=== PATIENT | male | born 1965 | race Caucasian/White ===

== ENCOUNTER 2018-01-15 22:08 | Inpatient (IN) | payer BC ==
[~2018-01-15] VITALS: Ht 185.4 cm; Wt 82.3 kg
[~2018-01-15 22:08] MED LIST: HYDR-3968 PO; LISI40TA4 PO; PER10325T PO; TADA20TA
[2018-01-15 23:23] LABS: BASOPHILS % (AUTO) 0.4 % (0-1); EOSINOPHILS # (AUTO) 0.1 X10'3 (0-0.9); EOSINOPHILS % (AUTO) 1.3 % (0-6); HEMATOCRIT 28.8 % (42.0-52.0); HEMOGLOBIN 9.1 g/dl (14.0-17.9); LYMPHOCYTES # (AUTO) 0.5 X10'3 (1.1-4.8); LYMPHOCYTES % (AUTO) 8.7 % (21-51); MEAN CORPUSCULAR HEMOGLOBIN 22.1 PG (27.0-31.0); MEAN CORPUSCULAR HGB CONC 31.7 % (33.0-36.5); MEAN CORPUSCULAR VOLUME 69.8 FL (78-98); MEAN PLATELET VOLUME 7.8 FL (7.4-10.4); MONOCYTES # (AUTO) 0.4 X10'3 (0-0.9); MONOCYTES % (AUTO) 8.2 % (2-12); NEUTROPHILS # (AUTO) 4.4 X10'3 (1.8-7.7); NEUTROPHILS % (AUTO) 81.4 % (42-75); PLATELET COUNT 269 X10'3 (140-440); RED BLOOD COUNT 4.13 X10'6 (4.70-6.10); RED CELL DISTRIBUTION WIDTH 18.6 % (11.5-14.5); WHITE BLOOD COUNT 5.4 X10'3 (4.5-11.0)
[2018-01-15] MEDS ORDERED: ondansetron/PF 4mg/2ml inj IV ONE (23:30)
[2018-01-15] MEDS ORDERED: normal saline 1000ml 1,000 ML IV ONE (23:30)
[2018-01-15] MEDS ORDERED: normal saline 1000ML IV soln IVB ONE (23:35)
[2018-01-15] MEDS ORDERED: morphine 4 MG/ML inj SYRINge IV ONE (23:35)
[2018-01-15 23:38] LABS: ALANINE AMINOTRANSFERASE 16 U/L (12-78); ALBUMIN/GLOBULIN RATIO 0.9 (1.1-1.5); ALKALINE PHOSPHATASE 71 IU/L (46-116); ANION GAP 14 (8-16); ASPARTATE AMINO TRANSFERASE 12 U/L (10-37); BILIRUBIN,TOTAL 0.7 MG/DL (0.1-1.0); BLOOD UREA NITROGEN 12 MG/DL (7-18); BUN/CREATININE RATIO 11.3 (5.4-32.0); CALCIUM 9.4 MG/DL (8.5-10.1); CHLORIDE 103 MMOL/L (99-107); CREATININE 1.06 MG/DL (0.60-1.10); GLUCOSE 121 MG/DL (70-104); POTASSIUM 3.6 MMOL/L (3.5-5.1); SODIUM 141 MMOL/L (135-145); TOTAL PROTEIN 6.4 G/DL (6.4-8.2); eGFR 74 ML/MIN
[2018-01-15] MEDS ORDERED: iohexol 300mg/ml 100ml inj. ONE (23:40)
[2018-01-15 23:48] LABS: PARTIAL THROMBOPLASTIN TIME 27 SECONDS (22-32)
[2018-01-15 23:54] LABS: LIPASE 90 U/L (73-393)
[2018-01-15 23:56] LABS: ANISOCYTOSIS 2+; ELLIPTOCYTES FEW; MICROCYTOSIS 2+; PLATELET ESTIMATE NORMAL; POLYCHROMASIA FEW
[2018-01-16] MEDS ORDERED: morphine 4 MG/ML inj SYRINge IV ONE ×2 (00:35→01:45)
[2018-01-16 01:12] LABS: CLARITY,URINE CLEAR (Clear); COLOR,URINE YELLOW (Yellow); GLUCOSE, URINE NEGATIVE (Neg); KETONES,URINE 15 mg/dl (Neg); LEUKOCYTE ESTERASE ,URINE NEGATIVE (Neg); NITRITES, URINE NEGATIVE (Neg); OCCULT BLOOD,URINE NEGATIVE (Neg); PROTEIN,URINE NEGATIVE (Neg)
[2018-01-16 01:19] LABS: UA COLLECTION TYPE URINAL
[2018-01-16] MEDS ORDERED: piperacillin/tazo 3.375gm/50ml 50 ML IV STA (01:41)
[2018-01-16] MEDS ORDERED: ondansetron/PF 4mg/2ml inj IV ONE (01:45)
[2018-01-16] MEDS ORDERED: acetaminophen 325mg tablet PO PRN (03:00)
[2018-01-16] MEDS ORDERED: hydrALAZINE 20mg/ml inj. IV PRN (03:00)
[2018-01-16] MEDS ORDERED: mag hydrox/Alum hydrox/simeth 30ml oral suspension PO PRN (03:00)
[2018-01-16] MEDS ORDERED: HYDROmorphone 1 mg/ml syringe IV ONE (03:00)
[2018-01-16] MEDS ORDERED: magnesium hydroxide 30ml (MOM) UD suspension PO PRN (03:00)
[2018-01-16] MEDS ORDERED: HYDROmorphone inj. 0.5 MG/0.5 ML DISP.SYRIN IV PRN ×2 (03:00)
[2018-01-16] MEDS ORDERED: fentaNYL/PF 50MCG/1 ML 2ML syringe IV ONE (03:05)
[2018-01-16] MEDS ORDERED: morphine 4 MG/ML inj SYRINge IV PRN (03:10)
[2018-01-16] MEDS ORDERED: MORPHINE 2MG in 2ml NS syringe IV PRN (03:10)
[2018-01-16 03:35] VITALS: BP 144/97
[2018-01-16] MEDS: normal saline 1000ml 1,000 ML IV SCH ×4 (03:38→23:00)
[2018-01-16] MEDS ORDERED: naloxone 0.4 mg/ml inj IV PRN (07:55)
[2018-01-16] MEDS ORDERED: CADD PCA waste documentation MC PRN (07:55)
[2018-01-16 08:00] VITALS: BP 152/93
[2018-01-16] MEDS: piperacillin/tazo 3.375gm/50ml 50 ML IV SCH ×3 (08:00→20:52)
[2018-01-16] MEDS: sennosides/docusate sodium tablet PO SCH ×2 (08:00→20:54)
[2018-01-16] MEDS: docusate sod 100mg capsule PO SCH ×2 (08:00→20:54)
[2018-01-16] MEDS: ondansetron/PF 4mg/2ml inj IV PRN ×2 (08:14→22:01)
[2018-01-16] MEDS: HYDROmorphone/NS 1 mg/ml CADD 50 ML IV SCH ×9 (08:32→23:00)
[2018-01-16 12:00] VITALS: BP 133/80
[2018-01-16 20:00] VITALS: BP 135/83
[2018-01-16] MEDS: lactobacillus rhamnosus 10,000 MMU CELLS/CAPSULE PO SCH (20:54)
[2018-01-17] VITALS: BP 123/78
[2018-01-17] MEDS: normal saline 1000ml 1,000 ML IV SCH ×3 (00:40→22:08)
[2018-01-17] MEDS: HYDROmorphone/NS 1 mg/ml CADD 50 ML IV SCH ×12 (01:00→23:00)
[2018-01-17] MEDS: piperacillin/tazo 3.375gm/50ml 50 ML IV SCH ×4 (02:04→19:25)
[2018-01-17 05:35] LABS: BASOPHILS % (AUTO) 0.4 % (0-1); EOSINOPHILS # (AUTO) 0.1 X10'3 (0-0.9); EOSINOPHILS % (AUTO) 1.7 % (0-6); HEMATOCRIT 22.6 % (42.0-52.0); HEMOGLOBIN 7.2 g/dl (14.0-17.9); LYMPHOCYTES # (AUTO) 0.6 X10'3 (1.1-4.8); LYMPHOCYTES % (AUTO) 16.7 % (21-51); MEAN CORPUSCULAR HEMOGLOBIN 22.2 PG (27.0-31.0); MEAN CORPUSCULAR HGB CONC 31.9 % (33.0-36.5); MEAN CORPUSCULAR VOLUME 69.5 FL (78-98); MEAN PLATELET VOLUME 8.4 FL (7.4-10.4); MONOCYTES # (AUTO) 0.6 X10'3 (0-0.9); MONOCYTES % (AUTO) 16.5 % (2-12); NEUTROPHILS # (AUTO) 2.4 X10'3 (1.8-7.7); NEUTROPHILS % (AUTO) 64.7 % (42-75); PLATELET COUNT 240 X10'3 (140-440); RED BLOOD COUNT 3.25 X10'6 (4.70-6.10); RED CELL DISTRIBUTION WIDTH 18.2 % (11.5-14.5); WHITE BLOOD COUNT 3.7 X10'3 (4.5-11.0)
[2018-01-17 05:58] LABS: ALBUMIN 2.3 G/DL (3.4-5.0); ANION GAP 11 (8-16); BLOOD UREA NITROGEN 15 MG/DL (7-18); BUN/CREATININE RATIO 14.7 (5.4-32.0); CALCIUM 8.1 MG/DL (8.5-10.1); CHLORIDE 107 MMOL/L (99-107); CREATININE 1.02 MG/DL (0.60-1.10); GLUCOSE 102 MG/DL (70-104); POTASSIUM 3.8 MMOL/L (3.5-5.1); SODIUM 144 MMOL/L (135-145); TOTAL CARBON DIOXIDE 25.9 MMOL/L (24-32); eGFR 77 ML/MIN
[2018-01-17] MEDS: lactobacillus rhamnosus 10,000 MMU CELLS/CAPSULE PO SCH ×2 (07:17→19:25)
[2018-01-17] MEDS: sennosides/docusate sodium tablet PO SCH ×2 (07:17→19:25)
[2018-01-17] MEDS: docusate sod 100mg capsule PO SCH ×2 (07:17→19:26)
[2018-01-17 07:27] VITALS: BP 132/78
[2018-01-17 12:00] VITALS: BP 144/96
[2018-01-17 14:15] LABS: BASOPHILS % (AUTO) 0.8 % (0-1); EOSINOPHILS # (AUTO) 0.1 X10'3 (0-0.9); EOSINOPHILS % (AUTO) 2.3 % (0-6); HEMATOCRIT 22.8 % (42.0-52.0); HEMOGLOBIN 7.3 g/dl (14.0-17.9); LYMPHOCYTES # (AUTO) 0.7 X10'3 (1.1-4.8); LYMPHOCYTES % (AUTO) 17.8 % (21-51); MEAN CORPUSCULAR VOLUME 68.8 FL (78-98); MEAN PLATELET VOLUME 7.4 FL (7.4-10.4); MONOCYTES # (AUTO) 0.6 X10'3 (0-0.9); MONOCYTES % (AUTO) 15.3 % (2-12); NEUTROPHILS # (AUTO) 2.4 X10'3 (1.8-7.7); NEUTROPHILS % (AUTO) 63.8 % (42-75); PLATELET COUNT 247 X10'3 (140-440); RED BLOOD COUNT 3.31 X10'6 (4.70-6.10); RED CELL DISTRIBUTION WIDTH 18.6 % (11.5-14.5); WHITE BLOOD COUNT 3.7 X10'3 (4.5-11.0)
[2018-01-17] MEDS ORDERED: oxyCODONE/APAP 10/325mg tablet PO PRN (17:45)
[2018-01-17 18:00] VITALS: BP 131/78
[2018-01-17 23:19] LABS: BASOPHILS % (AUTO) 0.7 % (0-1); EOSINOPHILS # (AUTO) 0.2 X10'3 (0-0.9); EOSINOPHILS % (AUTO) 4.7 % (0-6); HEMOGLOBIN 7.5 g/dl (14.0-17.9); LYMPHOCYTES # (AUTO) 0.9 X10'3 (1.1-4.8); LYMPHOCYTES % (AUTO) 22.7 % (21-51); MEAN CORPUSCULAR HEMOGLOBIN 21.8 PG (27.0-31.0); MEAN CORPUSCULAR HGB CONC 31.5 % (33.0-36.5); MEAN CORPUSCULAR VOLUME 69.3 FL (78-98); MEAN PLATELET VOLUME 8.4 FL (7.4-10.4); MONOCYTES # (AUTO) 0.6 X10'3 (0-0.9); MONOCYTES % (AUTO) 14.1 % (2-12); NEUTROPHILS # (AUTO) 2.4 X10'3 (1.8-7.7); NEUTROPHILS % (AUTO) 57.8 % (42-75); PLATELET COUNT 254 X10'3 (140-440); RED BLOOD COUNT 3.45 X10'6 (4.70-6.10); RED CELL DISTRIBUTION WIDTH 18.8 % (11.5-14.5); WHITE BLOOD COUNT 4.1 X10'3 (4.5-11.0)
[2018-01-17 23:46] LABS: ANISOCYTOSIS 2+; ELLIPTOCYTES FEW; HYPOCHROMASIA 2+; MICROCYTOSIS 2+; PLATELET ESTIMATE NORMAL
[2018-01-18] VITALS: BP 126/75
[2018-01-18] MEDS: HYDROmorphone/NS 1 mg/ml CADD 50 ML IV SCH ×5 (01:00→09:00)
[2018-01-18] MEDS: piperacillin/tazo 3.375gm/50ml 50 ML IV SCH ×2 (02:34→07:12)
[2018-01-18 05:56] LABS: BASOPHILS % (AUTO) 0.7 % (0-1); EOSINOPHILS # (AUTO) 0.3 X10'3 (0-0.9); EOSINOPHILS % (AUTO) 6.5 % (0-6); LYMPHOCYTES # (AUTO) 0.8 X10'3 (1.1-4.8); LYMPHOCYTES % (AUTO) 20.1 % (21-51); MEAN CORPUSCULAR HEMOGLOBIN 22.2 PG (27.0-31.0); MEAN CORPUSCULAR HGB CONC 31.9 % (33.0-36.5); MEAN CORPUSCULAR VOLUME 69.5 FL (78-98); MONOCYTES # (AUTO) 0.5 X10'3 (0-0.9); MONOCYTES % (AUTO) 12.6 % (2-12); NEUTROPHILS # (AUTO) 2.3 X10'3 (1.8-7.7); NEUTROPHILS % (AUTO) 60.1 % (42-75); PLATELET COUNT 219 X10'3 (140-440); RED CELL DISTRIBUTION WIDTH 18.2 % (11.5-14.5); WHITE BLOOD COUNT 3.9 X10'3 (4.5-11.0)
[2018-01-18 06:03] LABS: ALBUMIN 2.3 G/DL (3.4-5.0); ANION GAP 9 (8-16); BLOOD UREA NITROGEN 12 MG/DL (7-18); BUN/CREATININE RATIO 13.6 (5.4-32.0); CHLORIDE 107 MMOL/L (99-107); CREATININE 0.88 MG/DL (0.60-1.10); GLUCOSE 94 MG/DL (70-104); HEMOGLOBIN 6.7 g/dl (14.0-17.9); POTASSIUM 3.4 MMOL/L (3.5-5.1); SODIUM 140 MMOL/L (135-145); TOTAL CARBON DIOXIDE 23.8 MMOL/L (24-32); eGFR > 90 ML/MIN
[2018-01-18 06:04] LABS: HEMATOCRIT 20.8 % (42.0-52.0)
[2018-01-18] MEDS: lactobacillus rhamnosus 10,000 MMU CELLS/CAPSULE PO SCH (07:12)
[2018-01-18] MEDS: sennosides/docusate sodium tablet PO SCH (07:12)
[2018-01-18] MEDS: docusate sod 100mg capsule PO SCH (07:12)
[2018-01-18 07:54] LABS: ANISOCYTOSIS 2+; ELLIPTOCYTES FEW; HYPOCHROMASIA 1+; MICROCYTOSIS 2+; PLATELET ESTIMATE NORMAL
[2018-01-18] MEDS: normal saline 1000ml 1,000 ML IV SCH (07:55)
[2018-01-18 08:00] VITALS: BP 132/78
== END 2018-01-18 10:00 | disposition home or self-care (01) | DRG 389 ==
LOC: ER 22:08 → ED HOLD 01-16 03:00 → EDBEDREQ 01-16 03:16 → SUR 3N 01-16 03:31
PROVIDERS: ADMIT Internal Medicine; ATTEND Surgery
PROC: BW211ZZ Computerized Tomography (CT Scan) of Abdomen and Pelvis using Low Osmolar Contrast (ICD-10-PCS; 2018-01-15)
PROC: 0D9670Z Drainage of Stomach with Drainage Device, Via Natural or Artificial Opening (ICD-10-PCS; principal; 2018-01-16)
DX: K56.609 Unspecified intestinal obstruction, unspecified as to partial versus complete obstruction (principal); C18.9 Malignant neoplasm of colon, unspecified; D63.0 Anemia in neoplastic disease; I10 Essential (primary) hypertension; G89.18 Other acute postprocedural pain; Z85.038 Personal history of other malignant neoplasm of large intestine; Z90.49 Acquired absence of other specified parts of digestive tract
CPT/HCPCS: 36415; 71045; 74177; 80048; 80053; 81003; 83690; 84484; 85025; 85610; 85730; 86885; 86900; 86901; 86920; 87070; 93005; 96361; 96365; 96375; 96376; 99291; J1170; J2270; J2274; J2405; J2543; J3010; J7030; Q9967